=== PATIENT | male | born 1975 | race Caucasian/White ===

== ENCOUNTER 2016-11-02 07:03 | Emergency (ER) | payer OTHER ==
[2016-11-02 07:11] VITALS: BP 135/71
[2016-11-02] MEDS ORDERED: Ondansetron ODT TAB* 4 MG PO ONE (07:31)
[2016-11-02] MEDS ORDERED: Ibuprofen TAB* 600 MG PO ONE (07:31)
--- NOTE | 2016-11-02 07:34 | UC ---
romulo Chappell Timothy, scribed for Odilon Garrett MD on 11/02/16 at 0716 . Abdominal Pain Male HPI - HPI Summary HPI Summary: Judah Sung is a 41 yo male presenting to [facility] with RLQ cramping abd pain for the past few days and vomiting since with sharp 9/10 pain since last night. He states this has interfered with hi sleep. He denies any diarrhea, and notes soft BM. He states the pain does not radiate to his back. He denies any chills, but notes mild subjective fever. He denies any contact with people with illnesses, or any food that he thought was unusual. He states the ride over to [facility] was painful, and that he has been unable to find a comfortable position. He denies any known trauma, rhinorrrhea, sore throat. His MHx includes shoulder reconstruction surgeries, herniated disc, hernia repair, former tobacco use. - History of Current Complaint Stated Complaint: ABD PAIN VOMITING Time Seen by Provider: 11/02/16 07:20 Hx Obtained From: Patient Onset/Duration: Sudden Onset Severity Initially: Moderate Severity Currently: Moderate Pain Intensity: 9 Pain Scale Used: 0-10 Numeric Location: Discrete At: RLQ Character: Cramping, Sharp Associated Signs And Symptoms: Positive: Fever, Nausea, Vomiting. Negative: Back Pain, Diarrhea - Allergies/Home Medications Allergies/Adverse Reactions: Allergies Allergy/AdvReac Type Severity Reaction Status Date / Time Diazepam [From Valium] Allergy Severe N/V/D Verified 11/02/16 07:11 Home Medications: Home Medications Levothyroxine TAB* [Synthroid 88 MCG TAB*] 88 mcg PO DAILY 11/02/16 [History Confirmed 11/02/16] PMH/Surg Hx/FS Hx/Imm Hx - Surgical History Surgical History: Yes Surgery Procedure, Year, and Place: SHOULDER RECONSTRUCTION SURGERIES, HERNIATED DISC, HERNIA REPAIR - Family History Known Family History: Positive: Cardiac Disease, Hypertension, Other - appendicitis Negative: Diabetes - Social History Alcohol Use: Occasionally Substance Use Type: None Smoking Status (MU): Former Smoker Review of Systems Constitutional: Negative Skin: Negative Eyes: Negative ENT: Negative Respiratory: Negative Cardiovascular: Negative Gastrointestinal: Abdominal Pain, Vomiting, Nausea Genitourinary: Negative Motor: Negative Neurovascular: Negative Musculoskeletal: Negative Neurological: Negative Psychological: Negative All Other Systems Reviewed And Are Negative: Yes Physical Exam Triage Information Reviewed: Yes Vital Signs: Initial Vital Signs Temp 97.7 F 11/02/16 07:05 Pulse 81 11/02/16 07:05 Resp 16 11/02/16 07:05 BP 135/71 11/02/16 07:05 Pulse Ox 100 11/02/16 07:05 Vital Signs Reviewed: Yes - Additional Comments The patient is well-nourished in no acute distress and in no acute pain. The skin is warm and dry and skin color reflects adequate perfusion. HEENT: The head is normocephalic and atraumatic. The pupils are equal and reactive. The conjunctivae are clear and without drainage. Nares are patent and without drainage. Mouth reveals moist mucous membranes and the throat is without erythema and exudate. The external ears are intact. The ear canals are patent and without drainage. The tympanic membranes are intact. Neck is supple with full range of motion and non-tender. There are no carotid bruits. There is no neck vein distension. Respiratory: Chest is non-tender. Lungs are clear to auscultation and breath sounds are symmetrical and equal. Cardiovascular: Heart is regular rate and rhythm. There is no murmur or rub auscultated. There is no peripheral edema and pulses are symmetrical and equal. Abdomen: The abdomen is soft with tenderness in the right mid-quadrant. There is pain with flexion of the right knee. There is tenderness to palpation of the RLQ. There are normal bowel sounds heard in all four quadrants and there is no organomegaly palpated. Right CVA tenderness. Musculoskeletal: There is no back pain noted. Extremities are non-tender with full range of motion. There is good capillary refill. There is no peripheral edema or calf tenderness elicited. Neurological: Patient is alert and oriented to person, place and time. The patient has symmetrical motor strength in all four extremities. Cranial nerves are grossly intact. Deep tendon reflexes are symmetrical and equal in all four extremities. Psychiatric: The patient has an appropriate affect and does not exhibit any anxiety or depression. Re-Evaluation - Re-Evaluation First Eval Re-Evaluation Time: 07:29 Change: Unchanged Comment: Pt counseled CT unavailable. Pt recommended to present to [facility], which he is agreeable to. Abd Pain Male Course/Dx - Course Course Of Treatment: Judah Sung is a 41 yo male presenting to [facility] with RLQ cramping abd pain for the past few days and vomiting since with sharp 9/10 pain since last night. Pt medication list reviewed this visit. Pt counseled regarding differentials, and advised that CT is necessary. Due to unavailafbility of CT at [facility] today, Pt counseled to transfer to [facility] by ambulance. EMS offered for transport which Pt declines. He will be transferred to [facility] by private car. - Differential Dx/Clinical Impression Differential Diagnosis/HQI/PQRI: Appendicitis, Gall Bladder Disease, Other - renal calculi Provider Diagnoses: abd pain Discharge - Discharge Plan Condition: Stable Disposition: TRANS HIGHER LVL OF CARE FAC Discharge Disposition Comment: transfer to [facility] by private car The documentation as recorded by the romulo grant Timothy accurately reflects the service I personally performed and the decisions made by me, Odilon Garrett MD.
== END 2016-11-02 07:36 | disposition short-term general hospital (02) ==
LOC: UCEAST 07:03
DX: R10.31 Right lower quadrant pain (principal); Z87.891 Personal history of nicotine dependence
CPT/HCPCS: 99212; A9270-GY; G0463

== ENCOUNTER 2016-11-02 08:02 | Observation (INO) | payer OTHER ==
[2016-11-02] MEDS ORDERED: Ondansetron INJ* 2 MG/ML VIAL IV ONE (08:09)
[2016-11-02] MEDS ORDERED: NS 0.9% 1000 ML* 1,000 ML IV ONE (08:09)
[2016-11-02] MEDS ORDERED: HYDROmorphone* 1 MG/ML 1 ML SYR IV SLOW PU ONE (08:43)
[2016-11-02 09:08] LABS: Hematocrit 45 % (42-52); Hemoglobin 15.2 g/dl (14.0-18.0); Mean Corpuscular HGB Conc 34 g/dl (31-36); Mean Corpuscular Hemoglobin 31 pg (27-31); Mean Corpuscular Volume 91 fL (80-94); Mean Platelet Volume 8 um3 (7.4-10.4); Red Cell Distribution Width 13 % (10.5-15); White Blood Count 16.5 10^3/ul (3.5-10.8)
[2016-11-02 09:21] LABS: Albumin 4.5 g/dL (3.2-5.2); BUN/Creatinine Ratio 15.1 (8-20); C Reactive Protein 65.56 mg/L (< 5.00); Calcium 9.3 mg/dL (8.6-10.3); EGFR African American 127.3 (>60); Globulin 3.2 g/dL (2-4); Potassium 3.5 mmol/L (3.5-5.0); Total Bilirubin 1.2 mg/dL (0.2-1.0); Total Protein 7.7 g/dL (6.4-8.9)
[2016-11-02] MEDS ORDERED: Iohexol 300* (CONTRAST) 10 ML SDV IV ONE (09:38)
--- NOTE | 2016-11-02 09:58 | RAD ---
Indication: Right flank pain, right lower quadrant pain. Real-time sonography of the abdomen was performed. Liver is normal in size. No focal lesions or intrahepatic ductal dilatation is noted. The gallbladder demonstrates no gallstones, pericholecystic fluid or wall thickening. The common duct measures 3 mm. The right kidney measures 10.9 x 5.0 x 4.8 cm. Left kidney measures 11.1 x 4.6 x 4.7 cm. No hydronephrosis is noted. The visualized portions of the pancreatic neck and proximal body demonstrates no mass or pancreatic duct dilatation. The head, distal body and tail are limited in evaluation. Aorta and inferior vena cava are unremarkable. The spleen is normal in size. Graded compression sonography of the right lower quadrant was performed. There are no solid or cystic lesions identified. There is a trace amount of free fluid noted. IMPRESSION: Small amount of free fluid is noted. Appendix not visualized. No evidence of cholelithiasis or biliary duct dilatation.
[2016-11-02 11:55] LABS: Urine Bilirubin Negative (Negative); Urine Glucose Negative (Negative); Urine Nitrite Negative (Negative)
--- NOTE | 2016-11-02 12:19 | RAD ---
Indication: Right lower quadrant pain. Contrast: Administered 115.9 ml of OMNIPAQUE 300 mgi/ml. CT of the abdomen and pelvis was performed after oral and IV contrast coronal and sagittal reconstructed images were obtained. Lung bases demonstrate no pleural fluid, nodules or masses. Heart is of normal size without evidence of pericardial effusion. Liver is normal in size. No focal lesions or intrahepatic ductal dilatation is noted. The gallbladder demonstrates no calcified gallstones, pericholecystic fluid or wall thickening. The common duct is not dilated. The spleen is normal in size. No adrenal lesions are noted. The kidneys demonstrate symmetric nephrograms without focal lesions. Pancreas demonstrates no mass or pancreatic duct dilatation. No dilated loops of bowel are noted. CT of the pelvis demonstrates dilated tubular fluid-filled structure in the right abdomen. This is consistent with acute appendicitis with periappendiceal infiltration of fat. The appendix is retrocecal in nature. CT of the pelvis is otherwise unremarkable. Trace amount of free fluid is noted. Urinary bladder is unremarkable. IMPRESSION: Findings consistent with a dilated retrocecal appendix and adjacent infiltration of fat consistent with acute appendicitis. No abscess is noted.
--- NOTE | 2016-11-02 12:32 | ED ---
Erica Chappell Edward, scribed for Dixie Lopez MD on 11/02/16 at 0815 . Abdominal Pain/Male - HPI Summary HPI Summary: 41 y/o male presents to the ED c/o ABD pain starting three days ago. The ABD pain started as mild with swelling rated at a 3/10. At 00:00 this morning the pain became severe and became rated at a 9/10. The pain started in the stomach and moved to the RLQ. The pain also radiates to the back. The patient also vomited multiple times starting last night. The pain is rated at a 6/10 now. No dysuria. No PMHx IBS. - History of Current Complaint Chief Complaint: EDAbdPain Stated Complaint: ABD PAIN, VOMITING Time Seen by Provider: 11/02/16 08:08 Hx Obtained From: Patient Onset/Duration: Sudden Onset, Lasting Days - Three days ago, Still Present Timing: Constant Severity Initially: Mild Severity Currently: Severe Pain Intensity: 8 Pain Scale Used: 0-10 Numeric Location: Discrete At: RLQ, Other - Stomach Radiates: Yes Radiates to: Back Associated Signs And Symptoms: Positive: Nausea, Vomiting, Other - No dysuria - Allergies/Home Medications Allergies/Adverse Reactions: Allergies Allergy/AdvReac Type Severity Reaction Status Date / Time Diazepam [From Valium] Allergy Severe N/V/D Verified 11/02/16 07:11 PMH/Surg Hx/FS Hx/Imm Hx Previously Healthy: No Endocrine/Hematology History: Reports: Hx Thyroid Disease - Surgical History Surgery Procedure, Year, and Place: SHOULDER RECONSTRUCTION SURGERIES, HERNIATED DISC, HERNIA REPAIR Infectious Disease History: Denies: Traveled Outside the [place] in Last 30 Days - Family History Known Family History: Positive: Cardiac Disease, Hypertension, Other - appendicitis Negative: Diabetes - Social History Occupation: Employed Full-time Lives: With Family - Daughter Alcohol Use: Occasionally Hx Substance Use: No Substance Use Type: Reports: None Hx Tobacco Use: Yes Smoking Status (MU): Former Smoker Review of Systems Constitutional: Negative Eyes: Negative ENT: Negative Cardiovascular: Negative Respiratory: Negative Positive: Abdominal Pain, Vomiting, Nausea, Other - ABD swelling (resolved) Genitourinary: Negative Negative: dysuria Musculoskeletal: Negative Skin: Negative Neurological: Negative Psychological: Normal All Other Systems Reviewed And Are Negative: Yes Physical Exam Triage Information Reviewed: Yes Vital Signs On Initial Exam: Initial Vitals Temp Pulse Resp BP Pulse Ox 98.0 F 89 20 133/85 98 11/02/16 08:04 11/02/16 08:04 11/02/16 08:04 11/02/16 08:04 11/02/16 08:04 Vital Signs Reviewed: Yes Appearance: Positive: Well-Appearing, No Pain Distress Skin: Positive: Warm, Skin Color Reflects Adequate Perfusion, Dry Eyes: Positive: EOMI, JORDY ENT: Positive: Pharynx normal, TMs normal Neck: Positive: Supple, Nontender Respiratory/Lung Sounds: Positive: Clear to Auscultation, Breath Sounds Present. Negative: Rales, Rhonchi, Wheezes Cardiovascular: Positive: RRR, Other - No gallop. Negative: Murmur, Rub Abdomen Description: Positive: Soft, Other: - No rebound. Tenderness @ RLQ and RUQ. Negative: Distended, Guarding Bowel Sounds: Positive: Present Musculoskeletal: Positive: Strength/ROM Intact. Negative: Edema Left, Edema Right Neurological: Positive: Sensory/Motor Intact, Alert, Oriented to Person Place, Time, CN Intact II-III Psychiatric: Positive: Affect/Mood Appropriate Diagnostics - Vital Signs Vital Signs Temp Pulse Resp BP Pulse Ox 11/02/16 08:04 98.0 F 89 20 133/85 98 - Laboratory Lab Results: Lab Results 11/02/16 11/02/16 11/02/16 Range/Units 08:46 08:46 08:46 WBC 16.5 H (3.5-10.8) 10^3/ul RBC 4.90 (4.0-5.4) 10^6/ul Hgb 15.2 (14.0-18.0) g/dl Hct 45 (42-52) % MCV 91 (80-94) fL MCH 31 (27-31) pg MCHC 34 (31-36) g/dl RDW 13 (10.5-15) % Plt Count 245 (150-450) 10^3/ul MPV 8 (7.4-10.4) um3 Neut % (Auto) 87.7 H (38-83) % Lymph % (Auto) 5.1 L (25-47) % Bennett % (Auto) 6.8 (1-9) % Eos % (Auto) 0 (0-6) % Baso % (Auto) 0.4 (0-2) % Absolute Neuts (auto) 14.5 H (1.5-7.7) 10^3/ul Absolute Lymphs (auto) 0.8 L (1.0-4.8) 10^3/ul Absolute Monos (auto) 1.1 H (0-0.8) 10^3/ul Absolute Eos (auto) 0 (0-0.6) 10^3/ul Absolute Basos (auto) 0.1 (0-0.2) 10^3/ul Absolute Nucleated RBC 0.02 10^3/ul Nucleated RBC % 0.1 Sodium 134 (133-145) mmol/L Potassium 3.5 (3.5-5.0) mmol/L Chloride 99 L (101-111) mmol/L Carbon Dioxide 27 (22-32) mmol/L Anion Gap 8 (2-11) mmol/L BUN 13 (6-24) mg/dL Creatinine 0.86 (0.67-1.17) mg/dL Est GFR ( Amer) 127.3 (>60) Est GFR (Non-Af Amer) 99.0 (>60) BUN/Creatinine Ratio 15.1 (8-20) Glucose 127 H (70-100) mg/dL Lactic Acid 1.0 (0.5-2.0) mmol/L Calcium 9.3 (8.6-10.3) mg/dL Magnesium 2.0 (1.9-2.7) mg/dL Total Bilirubin 1.20 H (0.2-1.0) mg/dL AST 16 (13-39) U/L ALT 17 (7-52) U/L Alkaline Phosphatase 68 (34-104) U/L C-Reactive Protein 65.56 H (< 5.00) mg/L Total Protein 7.7 (6.4-8.9) g/dL Albumin 4.5 (3.2-5.2) g/dL Globulin 3.2 (2-4) g/dL Albumin/Globulin Ratio 1.4 (1-3) Lipase 19 (11.0-82.0) U/L Urine Color Urine Appearance Urine pH (5-9) Ur Specific [place] (1.010-1.030) Urine Protein (Negative) Urine Ketones (Negative) Urine Blood (Negative) Urine Nitrate (Negative) Urine Bilirubin (Negative) Urine Urobilinogen (Negative) Ur Leukocyte Esterase (Negative) Urine Glucose (Negative) 11/02/16 Range/Units 11:33 WBC (3.5-10.8) 10^3/ul RBC (4.0-5.4) 10^6/ul Hgb (14.0-18.0) g/dl Hct (42-52) % MCV (80-94) fL MCH (27-31) pg MCHC (31-36) g/dl RDW (10.5-15) % Plt Count (150-450) 10^3/ul MPV (7.4-10.4) um3 Neut % (Auto) (38-83) % Lymph % (Auto) (25-47) % Bennett % (Auto) (1-9) % Eos % (Auto) (0-6) % Baso % (Auto) (0-2) % Absolute Neuts (auto) (1.5-7.7) 10^3/ul Absolute Lymphs (auto) (1.0-4.8) 10^3/ul Absolute Monos (auto) (0-0.8) 10^3/ul Absolute Eos (auto) (0-0.6) 10^3/ul Absolute Basos (auto) (0-0.2) 10^3/ul Absolute Nucleated RBC 10^3/ul Nucleated RBC % Sodium (133-145) mmol/L Potassium (3.5-5.0) mmol/L Chloride (101-111) mmol/L Carbon Dioxide (22-32) mmol/L Anion Gap (2-11) mmol/L BUN (6-24) mg/dL Creatinine (0.67-1.17) mg/dL Est GFR ( Amer) (>60) Est GFR (Non-Af Amer) (>60) BUN/Creatinine Ratio (8-20) Glucose (70-100) mg/dL Lactic Acid (0.5-2.0) mmol/L Calcium (8.6-10.3) mg/dL Magnesium (1.9-2.7) mg/dL Total Bilirubin (0.2-1.0) mg/dL AST (13-39) U/L ALT (7-52) U/L Alkaline Phosphatase (34-104) U/L C-Reactive Protein (< 5.00) mg/L Total Protein (6.4-8.9) g/dL Albumin (3.2-5.2) g/dL Globulin (2-4) g/dL Albumin/Globulin Ratio (1-3) Lipase (11.0-82.0) U/L Urine Color Yellow Urine Appearance Clear Urine pH 6.0 (5-9) Ur Specific [place] 1.008 L (1.010-1.030) Urine Protein Negative (Negative) Urine Ketones 1+ H (Negative) Urine Blood Negative (Negative) Urine Nitrate Negative (Negative) Urine Bilirubin Negative (Negative) Urine Urobilinogen Negative (Negative) Ur Leukocyte Esterase Negative (Negative) Urine Glucose Negative (Negative) Result Diagrams: 11/02/16 08:46 11/02/16 08:46 Lab Statement: Any lab studies that have been ordered have been reviewed, and results considered in the medical decision making process. - CT ABD/PEL CT CT Interpretation: Positive (See Comments) - Findings consistent with a dilated retrocecal appendix and adjacent infiltration of fat consistent with acute appendicitis. No abscess is noted. CT Interpretation Completed By: Radiologist - Ultrasound No standard instances Ultrasound Interpretation: No Acute Changes - ABD US - Small amount of free fluid is noted. Appendix not visualized. No evidence of cholelithiasis or biliary duct dilatation. Ultrasound Interpretation Completed By: Radiologist - EKG 1 Cardiac Rate: NL EKG Rhythm: Sinus Rhythm - @ [address] Segment: Normal EKG Interpretation: 08:48 Abdominal Pain Fem Course/Dx - Course Course Of Treatment: 41 yo male presents with ruq and rlq pain dx of appendicitis on CT admitted to surgery - Diagnoses Provider Diagnoses: Appendicitis - Provider Notifications Discussed Care Of Patient With: Jerome Mendoza Time Discussed With Above Provider: 12:00 Discharge - Discharge Plan Condition: Stable Disposition: ADMITTED TO [facility] documentation as recorded by the Erica grant Edward accurately reflects the service I personally performed and the decisions made by , Dixie Lopez MD.
[2016-11-02] MEDS ORDERED: Ondansetron INJ* 2 MG/ML VIAL IV PRN ×3 (12:41→16:54)
[2016-11-02] MEDS ORDERED: HYDROmorphone* 1 MG/ML 1 ML SYR IV PRN (12:41)
[2016-11-02] MEDS ORDERED: Lidocaine 2% PF * 5 ML VIAL ONE (13:04)
[2016-11-02] MEDS ORDERED: Midazolam* 1 MG/ML 5 ML VIAL (5 MG) ONE (13:04)
[2016-11-02] MEDS ORDERED: Cisatracurium* 2 MG/ML MDV 5 ML ONE (13:04)
[2016-11-02] MEDS ORDERED: KETAMINE HCL* 50 MG/ML 10 ML VIAL ONE (13:04)
[2016-11-02] MEDS ORDERED: Dexamethasone IV* 4 MG/ML 1 ML (4 MG) ONE (13:04)
[2016-11-02] MEDS ORDERED: Propofol* 10 MG/ML 20 ML BTL IV PUSH ONE ×2 (13:04→15:56)
[2016-11-02] MEDS ORDERED: fentaNYL* 50 MCG/ML 2 ML VIAL (100 MCG VIAL) ONE (13:04)
[2016-11-02] MEDS ORDERED: Ketorolac INJ* 30 MG/ML 1 ML VIAL ONE (13:04)
[2016-11-02] MEDS ORDERED: Ondansetron INJ* 2 MG/ML VIAL ONE (13:04)
[2016-11-02] MEDS ORDERED: ZOSYN 3.375 GM x ONE DOSE over 30 miuntes IVPB ×2 (13:30)
[2016-11-02] MEDS ORDERED: Bupivacaine 0.25% W/EPI* 50 ML VIAL ONE (13:35)
[2016-11-02] MEDS ORDERED: Famotidine IV* 10 MG/ML 2 ML (20 mg) ONE (14:09)
[2016-11-02] MEDS ORDERED: EPHEDrine (Pressors)* 50 MG/ML VIAL ONE (14:40)
--- NOTE | 2016-11-02 14:40 | HP ---
CC: Dr. Deven Cheng * ADMISSION HISTORY AND PHYSICAL: DATE OF ADMISSION: 11/02/16 ADMITTING PHYSICIAN: Jerome Mendoza MD * (DICTATED BY NORMA GROSSMAN) CHIEF COMPLAINT: Right lower quadrant abdominal pain. HISTORY OF PRESENT ILLNESS: Mr. Payne is a pleasant 41-year-old gentleman who presented to the emergency room earlier today with complaints of 3-day history of worsening abdominal pain. He reports his pain starting approximately on Wednesday afternoon typically localized to epigastric and umbilical area. He described it initially as a mild aching pain with some cramping and feeling bloated, for which he took some gywb-ooh-pxhbrcy acid reflux medicine with no improvement. Gradually over the course of the past 2 days, his pain has gotten progressively worse until last night. He experienced severe episodes of pain that he described now as being sharp and localized to the right lower quadrant and right flank. Pain was 10/10 with associated nausea and multiple episodes of vomiting as well. He denied any fever; however , he felt some chills and sweating as well. His pain was typically localized to the right lower quadrant, but also radiated to the right upper quadrant and right flank. Given his worsening abdominal pain, he presented to the emergency room for further evaluation. His initial laboratory workup revealed leukocytosis with white count of 16,000. He also had a CT scan as well as an abdominal ultrasound that was consistent with acute appendicitis, for which we were asked to see the patient for further evaluation and to discuss surgery. He denied any hematuria, dysuria, or any history of kidney stones. He took some Dilaudid and 1 L of IV fluid at the ED and he feels slightly better at the time of admission. He, otherwise, is an extremely healthy middle-aged gentleman with no significant past medical history. PAST MEDICAL HISTORY: Significant for hypothyroidism. He denies any history of heart, liver, lung, or kidney disease. PAST SURGICAL HISTORY: Significant for 3 surgeries on the right shoulder in the past due to dislocation and rotator cuff repair. Most recent surgery about 15 years ago. He also had 1 surgery on left shoulder due to multiple dislocation and ligament tear. He also had a right inguinal hernia repair at age 11. CURRENT MEDICATIONS: His medications at home include levothyroxine 88 mcg once daily. ALLERGIES: He is allergic to DIAZEPAM that caused severe nausea, vomiting, and diarrhea. FAMILY HISTORY: He reports family history of hypertension and cardiac disease. Denies any family history of colorectal malignancies. SOCIAL HISTORY: The patient is a former smoker who quit 10 years ago. He drinks alcohol occasionally and caffeine intake is minimal. REVIEW OF SYSTEMS: See HPI, otherwise negative. He denies any headache, dizziness, blurred vision, or syncope. No sore throat, cough, shortness of breath, or wheezing. He denies any chest pain or palpitation. No back pain, flank pain, hematuria, dysuria, or urinary frequency. He admits to chills last night, but denies any fever, night sweats, or recent weight loss. PHYSICAL EXAMINATION GENERAL: He is a pleasant, healthy-appearing, well-nourished, and well- developed middle-aged gentleman, in no acute distress or discomfort at the time of admission. VITAL SIGNS: Revealed temperature of 98.1, pulse of 69, blood pressure of 126/ 66, and O2 sat of 99% on room air. HEENT: Sclerae anicteric. PERRLA. EOMs intact. Oropharynx is pink and moist. There is no exudate. NECK: Supple. Trachea midline. No cervical adenopathy, thyromegaly, or JVD. LUNGS: Clear to auscultation bilaterally. There are no rales, wheezes, or rhonchi noted. HEART: Regular rate and rhythm. Normal S1 and S2 without rubs, murmurs, or gallops. BACK: With normal curvature. No CVA tenderness. ABDOMEN: Soft and nondistended. There is moderate right lower quadrant and right flank tenderness on palpation. There is moderate guarding, but no rigidity noted. There is a point tenderness at McBurney's point with significant rebound tenderness noted as well. There are no hernias, masses, or hepatosplenomegaly. RECTAL EXAM: Deferred at this time. NEUROLOGIC: Grossly intact. LABORATORY DATA: CBC with white count of 16,500, hemoglobin of 15.2, hematocrit of 45, and platelets of 245. Chemistry with sodium of 134, potassium is 3.5, chloride 99, CO2 27, BUN of 13, and creatinine of 0.8. His LFTs and lipase were essentially within normal limits. C-reactive protein is elevated with a value of 65. ACCESSORY DIAGNOSTIC DATA: The patient had first an abdominal ultrasound that revealed small amount of free fluid with no evidence of cholelithiasis and appendix was not visualized, that was followed with a CT scan of the abdomen and pelvis that revealed a dilated retrocecal appendix with adjacent infiltration, which is consistent with acute appendicitis. IMPRESSION: A 41-year-old gentleman with signs and symptoms as well as CT scan findings consistent with acute appendicitis. PLAN: The patient will be directly admitted to surgical services. I discussed with him proceeding with a laparoscopic appendectomy given his ongoing symptoms. The rationale, indications, risks, and benefits of the surgery were discussed with him today. Risks include but not limited to infection, bleeding , or injury to adjacent structures. His last p.o. intake was earlier this morning and he has been n.p.o. for over 8 hours now. We will maintain him n.p.o. and give him more IV fluid as well as prophylactic antibiotics and he will be taken to the operating room later this afternoon in anticipation for laparoscopic appendectomy to be performed by Dr. Mendoza. We will follow him up accordingly. NORMA GROSSMAN [id number]/[facility] #: [id number] LEEANNA
[2016-11-02] MEDS ORDERED: fentaNYL* 50 MCG/ML 2 ML VIAL (100 MCG VIAL) IV PRN (15:44)
[2016-11-02] MEDS ORDERED: oxyCODONE/Acetamin 5/325 MG* TAB PO PRN ×3 (15:44→16:58)
--- NOTE | 2016-11-02 16:19 | SURGPN ---
Brief Operative Note - Surgery Procedures: OPERATIVE REPORT PRE-OP: Acute appendicitis POST-OP: Acute retrocecal appendicitis PROCEDURE: Laparoscopic appendectomy SURGEON: MD Reji ANESTHESIA: General with local, Dr. Griggs ASST: none IVF: 1 liter of crystalloid EBL: min SPECIMEN: appendix DRAIN: none WOUND CLASS: 3 COMPLICATIONS: none TO PACU
[2016-11-02] MEDS ORDERED: Acetaminophen TAB* 325 MG PO PRN (16:54)
[2016-11-02] MEDS ORDERED: Morphine INJ* 2 MG/ML 1 ML SYRINGE IV PRN (16:54)
[2016-11-02] MEDS ORDERED: NS 0.9% 1000 ML* 1,000 ML IV SCH (17:00)
[2016-11-02] MEDS: Heparin VIAL(*) 5000 UNITS/ML VIAL (FIVE THOUSAND) SUBCUT SCH (22:37)
[2016-11-02] MEDS: Ketorolac INJ* 30 MG/ML 1 ML VIAL IV PUSH PRN (22:37)
[2016-11-03] MEDS ORDERED: Levothyroxine TAB* 88 MCG TAB PO SCH (06:00)
[2016-11-03] MEDS: Heparin VIAL(*) 5000 UNITS/ML VIAL (FIVE THOUSAND) SUBCUT SCH (06:02)
[2016-11-03] MEDS: Ketorolac INJ* 30 MG/ML 1 ML VIAL IV PUSH PRN (06:08)
--- NOTE | 2016-11-03 08:01 | PN ---
Progress Note - Progress Note Date of Service: 11/03/16 SOAP: Subjective: Doing well-tolerating po and ambulating in the halls Pain is well controlled Objective: Temp Pulse Resp BP Pulse Ox 98.0 F 72 16 100/55 96 11/03/16 03:21 11/03/16 03:21 11/03/16 03:21 11/03/16 03:21 11/03/16 03:21 Intake & Output 11/01/16 11/02/16 11/03/16 11/04/16 06:59 06:59 06:59 06:59 Intake Total 4498 Output Total 350 Balance 4148 Weight 192 lb Intake: IV Fluids 3102 LR 2000 NS 100ML, Zosyn 3.375G 100 IVPB 111 Oral 1285 Output: Urine 350 Other: Estimated Void Medium # Voids 1 PEX: Comfortable Abd is soft and non-distended. Incisions are clean and dry. Bowel sounds are present. Assessment: POD# 1 s/p appendectomy for acute appendicitis Plan: D/C home today No antibiotics needed. Instructions given Follow up in office next week Rx to [facility] for Percocet.
[2016-11-03 08:24] VITALS: BP 128/69
--- NOTE | 2016-11-03 17:32 | OP ---
DATE OF OPERATION: 11/02/16 - ROOM #334 DATE OF : 79 SURGEON: Jerome Mendoza MD GUIDE EXCURSION: None. ANESTHESIOLOGIST: Salo Griggs MD ANESTHESIA: General with local. PRE-OP DIAGNOSIS: Acute appendicitis. POST-OP DIAGNOSIS: Acute retrocecal appendicitis. OPERATIVE PROCEDURE: Laparoscopic appendectomy. INDICATIONS: Mr. Judah Payne is a 41-year-old gentleman who developed some abdominal pain on Wednesday into Wednesday morning while at home. This persisted over the weekend, became more localized in the right side of his abdomen yesterday. It became quite severe, and he presented to the emergency room early this morning. He was noted to have an elevated white blood cell count of 16,000 and had tenderness in the right mid, and right lower abdomen. He underwent CT scan of the abdomen and pelvis, which showed acute findings consistent with acute appendicitis with thickened dilated appendix, which appeared to be retrocecal. There is no evidence of abscess or perforation, however. After reviewing the patient's presentation, physical exam, workup including CAT scan, it was felt that he does have acute appendicitis and recommended to proceed with an appendectomy today. The procedure was discussed with him and he agrees to proceed. The risks but not limited to bleeding, infection, intra-abdominal abscess formation, injury to peritoneal and retroperitoneal structures, possibility of an open procedure, possibility of an abscess formation, risks of general anesthesia including deep vein thrombosis and pulmonary embolism were also discussed. Possibility of an overnight stay in the hospital was discussed as well as recovery times and activity restrictions postoperatively. He gives his consent and agrees to proceed. ESTIMATED BLOOD LOSS: Minimal. SPECIMENS: Appendix. DRAINS: None. COMPLICATIONS: None. WOUND CLASSIFICATION: III. FINDINGS: The patient had acute appendicitis, which was retrocecal, quite indurated without evidence of perforation or abscess, however. DESCRIPTION OF PROCEDURE: Written informed consent was obtained, the abdomen was marked with indelible ink and preoperative antibiotics were administered. The patient was taken to the operating room, placed in the supine position. Sequential compression devices and warming blanket were applied. General anesthesia was administered. The abdomen was prepped and draped in the usual sterile fashion. Time-out verification was completed. 0.25% Marcaine was infiltrated just below the umbilicus and at the midline, a vertical incision was made at the base of the umbilicus extending inferiorly. The midline fascia was identified and this was divided and the peritoneal cavity was entered under direct vision. A 12-mm port was placed and the abdomen was insufflated to 15 mmHg. Under direct vision, a 5-mm port was placed in the left lower abdominal wall and a second 5-mm port was placed in the suprapubic position. Evaluation of the abdomen revealed no evidence of peritonitis, purulence, or significant fluid. The terminal ileum and right colon appeared to be unremarkable. I was able to identify the base of the appendix at the inferior portion of the cecum. The base of the appendix appeared to be normal and it became much more distended and edematous. It appeared that there was an extended laterally and superiorly along the abdominal wall in a retrocecal position. It appeared to be quite adherent to the ascending colon as well. Thus, started the dissection laterally by dividing some of the peritoneal attachments and delivering the appendix up into view from its proximal portion towards its distal location. Once I was able to identify the foreshortened appendiceal mesentery I was able to bluntly dissect the appendix off the right lateral surface of the right colon. I was then able to divide the appendiceal mesentery sequentially with LigaSure device all the way up to the tip where it was quite adherent to the lateral wall, and this was taken down with combination of sharp and blunt dissection. Once the appendix was delivered up into view, it was apparent that I had included the complete appendix in the dissection. There was no evidence of perforation or abscess in this area. As mentioned below, the base of the appendix and cecum were unremarkable. Next, an Endo ASIM 45-mm urena load of the stapler was used to amputate the appendix at its base. This was placed in an Endo Catch bag and brought out through the umbilical incision. The staple line was intact and hemostasis along the retrocecal area was obtained. I did use some irrigation fluid down in the pelvis, right side and the right abdominopelvic gutter. All ports were then removed under direct vision of the camera. There was no abdominal wall bleeding. The umbilical fascia was closed with interrupted 0 Polysorb suture. The skin was approximated at all 3 incisions with subcuticular 4-0 Polysorb suture. Steri-Strips were applied. The patient tolerated the procedure well and was taken to the recovery room in stable condition. [id number]/[facility] #: [id number] LEEANNA
--- NOTE | 2016-11-05 04:09 | DS ---
DISCHARGE SUMMARY: DATE OF ADMISSION: 11/02/16 DATE OF DISCHARGE: 11/03/16 PRINCIPAL DIAGNOSIS: Acute appendicitis. PROCEDURE PERFORMED: Laparoscopic appendectomy. CONDITION ON DISCHARGE: Good. DISPOSITION: To home. MEDICATIONS: Prescriptions given were: 1. Percocet for discomfort. 2. He is to continue on his Synthroid for treatment of his hypothyroidism. FOLLOWUP: Instructions were made to be seen in the office in seven days for followup and written instructions were given. BRIEF HISTORY: Ms. Judah Payne is a 41-year-old gentleman presented to the emergency room with two to three days of abdominal pain becoming localized in the right lower quadrant. He is noted to have a white blood cell count of 16, [address] scan of the abdomen and pelvis in the emergency room, showed findings consistent with acute retrocecal appendicitis. HOSPITAL COURSE: Surgical consultation was obtained for the emergency room and it was felt that after reviewing his history and physical exam and workup that he did indeed have an acute appendicitis. He was taken to the operating on the day of presentation where he underwent a laparoscopic appendectomy for acute appendicitis. He tolerated the procedure well. Due to the time of day, the completion of the case and the fact he did require postoperative antibiotics. He spent one night in the hospital, but he did well , remaining afebrile. His diet was advanced as he tolerated it. His pain was well- controlled. He was discharged to home on postoperative day #1 with the above instructions. [id number]/[facility] #: [id number] MTDD
== END 2016-11-03 10:25 | disposition home or self-care (01) ==
LOC: ED 08:02 → OR 15:06 → SSU 16:50
PROVIDERS: ADMIT Surgery; ATTEND Surgery
DX: K35.80 Unspecified acute appendicitis (principal); E03.9 Hypothyroidism, unspecified; R10.31 Right lower quadrant pain; R11.2 Nausea with vomiting, unspecified; Z87.891 Personal history of nicotine dependence
CPT/HCPCS: 36415; 74177; 76700; 80053; 81003; 83605; 83690; 83735; 85025; 86140; 88304; 93005; 96374; 96375; 99283; A9270-GY; C1776; G0378; J1100; J1170; J1644; J1885; J2250; J2405; J2543; J2704; J3010; Q9967

== ENCOUNTER 2017-10-18 13:09 | Emergency (ER) | payer BC ==
--- OUTSIDE RECORDS SUMMARY | 2017-10-18 13:18 | XMS REPORT ---
:1975 External Reference #:[id number] Author Organization [facility] Address [address] [facility] [address] [facility] [place] [place] [address] Phone [phone] Care Team Providers Name Role Phone Deven Cheng MD Primary Care Physician Unavailable Payers Type Date Identification Numbers Payment Provider Subscriber Commercial Policy Number: [id number] [employer] Karel Raman PayID: [id number] [address] [place] [address] Problems Description No Information Family History Date Family Member(s) Problem(s) Comments General Cancer General Hypertension Social History Type Date Description Comments Lives 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 Occupation Teacher ETOH Use Currently consumes alcohol Smoking Patient is a former smoker Allergies, Adverse Reactions, Alerts Date Description Reaction Status Severity Comments 11/05/2016 Diazepam active Medications Medication Date Status Form Strength Qnty SIG Indications Ordering Provider Levothyroxine Active Tablets 88mcg 1 by Unknown Sodium 00 mouth every day Vital Signs Date Vital Result Comment 10/07/2017 Height 69 inches 5'9" Weight 189.00 lb BP Systolic 132 mmHg BP Diastolic 82 mmHg Respiratory Rate 16 /min Body Temperature 96.9 F Pain Level 3 BMI (Body Mass Index) 27.9 kg/m2 11/09/2016 Height 69 inches 5'9" Weight 192.00 lb Heart Rate 68 /min BP Systolic 124 mmHg BP Diastolic 70 mmHg Respiratory Rate 16 /min Body Temperature 97.5 F BMI (Body Mass Index) 28.4 kg/m2 Results Test Date Test Result H/L Range Note Laboratory test 11/02/2016 Surgical Pathology SEE RESULT BELOW 1 finding 1 SEE RESULT BELOW Name: KAREL RAMAN : [address]: Jerome Mendoza MD Acct: [id number] Unit: [id number] AGE: 41 Location: [facility] 334-01 Re11/02/16 Dis: 11/03/16 SEX: M Status: DIS Maryse SPEC: [id number] DEMETRIA: 11/02/16- [facility] DR: Jerome Mendoza MD REQ: [id number] RECD: 11/02/16 STATUS: SOUT _ ORDERED: LEVEL 3 FINAL DIAGNOSIS Vermiform appendix, appendectomy: -- Acute suppurative appendicitis with periappendicitis. PRE-OPERATIVE DIAGNOSIS Acute appendicitis GROSS DESCRIPTION The specimen is received in formalin labeled, Appendix, and consists of a 9.2 cm appendix with a small amount of attached mesoappendix at the distal tip. The external diameter ranges from 0.5 cm to 1.1 cm. The serosa is predominantly shaggy mottled urena -benitez with fibromembranous adhesions, mild urena-white fibropurulent exudate and focal cautery. The lumen ranges from 0.1 cm to 0.5 cm and contains hemorrhagic debris. The mucosa is predominantly urena-benitez with mild focal hemorrhage and the wall thickness averages 0.1 cm. Digital Tech sections, one cassette. Signed (signature on file) Andrew Bliss MD 1521 END OF REPORT * ML=Testing performed at Main Lab DEPARTMENT OF PATHOLOGY, [address] [place] [address] Andrew Bliss M.D. Director [facility] # [id number] Procedures Date CPT Code Description Status 11/02/2016 36365 Laparoscopy, Surgical, Appendectomy Completed Encounters Type Date Location Provider CPT E/M Dx Office Visit 11/02/2016 [facility], [address] K35.80 7:00a Ambrocio GREEN Plan of Care 10/07/2017 - Ailyn Clay M.D.M25.531 Pain in right wristNew Xrays:Wrist Right 3+ VWSMRI Wrist Right ArthrogramFollow up:Follow up: after testing is completed
--- OUTSIDE RECORDS SUMMARY | 2017-10-18 13:18 | XMS REPORT ---
:1975 External Reference #:[id number] Author Organization [facility] Address [address] [place] [address] Phone [phone] Care Team Providers Name Role Phone Amaury Linton MD Care Team Information Testing Specialist Unavailable Amaury Linton MD Primary Care Physician Unavailable Payers Type Date Identification Numbers Payment Provider Subscriber Commercial Effective: Policy Number: [id number] P Judah Ireland Pineda 2012 Group Number: [id number] [address] Group Name: [place] [address] PayID: [id number] Commercial Effective: Policy Number: Insurance Change Judah Mchughntosh 2017 [id number] PayID: [id number] Problems Description No Information Family History Date Family Member(s) Problem(s) Comments Father Unknown estranged, knows he's alive Mother Unknown estrangement Mother Hysterectomy First Daughter 16 First Daughter No Current Problems First Sister Thyroid Disease Maternal Grandmother due to [place] () - Also had hysterectomy for cancer Social History Type Date Description Comments Marital Status Not Lives 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 Age 16 Diet Healthy, Well Balanced Is busy, does eat out a lot 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 No concerns about STIs, has been tested since starting the relationship. Allergies, Adverse Reactions, Alerts Date Description Reaction Status Severity Comments 10/01/2017 Valium active Medications Medication Date Status Form Strength Qnty SIG Indications Ordering Provider Complete Active Judah Coe Physical Exam 018 Pineda Sheridan, was seen by GAMMA RAY OPERATOR me on 10/01/17 for a complete adult wellness exam. Levothyroxine Active Tablets 88mcg 1 by mouth Unknown Sodium 000 every day Vital Signs Date Vital Result Comment 10/01/2017 BP Systolic 116 mmHg BP Diastolic 70 mmHg Heart Rate 56 /min Body Temperature 98.0 F Respiratory Rate 16 /min Height 69 inches 5'9" Weight 192.00 lb BMI (Body Mass Index) 28.4 kg/m2 Results Description No Information Procedures Description No Information Plan of Care 10/01/2017 - Bhavana CBennett Sheridan, NPZ00.00 Encntr for general adult medical exam w /o abnormal findingsNew Labs:CBC Electronic (Fma)CCS-Lipid Profile (Fma) FemaleComp MetabolicHemoglobin A1c (Fma)TSH (Fma/[facility])Comments:You are in excellent general health. I recommend regular physical exams with attention to good nutrition and exercise, eye exams every other year, and dental exams twice yearly. ~B_~U_Goals:~u_~b_2 fresh fruits daily3 helpings of fresh green and multicolored vegetablesEat from the whole color spectrum. 40-60 Oz water daily~B_~U_MOVE YOUR BODY.~u_~b_ Bodies were made to be moved. exercise 30 minutes at least 4-5 times qkqectH80.9 Hypothyroidism, unspecifiedComments: Will recheck TSHM25.531 Pain in right wristComments:I recommend you follow up with a hand specialist.AllNew Medication:Complete Physical Exam
[2017-10-18 13:23] VITALS: BP 111/73
--- NOTE | 2017-10-18 13:26 | UC ---
Hand/Wrist HPI - HPI Summary HPI Summary: 42 yo male presents with LEFT wrist pain and left low back pain since yesterday. He tells me that yesterday he was doing a lot of housework. At one point he twisted his left wrist and heard a pop - was able to keep using his wrist/hand with mild pain. Today has some mild pain as well, but no decreased ROM. His low back pain also started with the housework yesterday, but woke up this morning and his lower back was much more stiff. He last took ibuprofen early this morning with mild relief. Denies fever, chills, numbness, tingling, saddle anesthesia, or loss of bowel/bladder control. - History Of Current Complaint Chief Complaint: UCBackPain Stated Complaint: WRIST AND BACK PAIN Time Seen by Provider: 10/18/17 13:25 Hx Obtained From: Patient Onset/Duration: Sudden Onset Severity Initially: Moderate Severity Currently: Severe Pain Intensity: 8 Pain Scale Used: 0-10 Numeric - Allergies/Home Medications Allergies/Adverse Reactions: Allergies Allergy/AdvReac Type Severity Reaction Status Date / Time diazepam [From Valium] Allergy Rash Verified 10/18/17 13:23 PMH/Surg Hx/FS Hx/Imm Hx Previously Healthy: Yes Endocrine History: Hypothyroidism - Surgical History Surgical History: Yes Surgery Procedure, Year, and Place: bilateral SHOULDER RECONSTRUCTION SURGERIES , HERNIATED DISC, HERNIA REPAIR. 11/2016 APPENDIX - Family History Known Family History: Positive: Cardiac Disease, Hypertension, Other - appendicitis Negative: Diabetes - Social History Occupation: Employed Full-time Lives: With Family Alcohol Use: Occasionally Alcohol Amount: every 3 months Substance Use Type: None Smoking Status (MU): Former Smoker - Immunization History Most Recent Influenza Vaccination: 2013 Most Recent Pneumonia Vaccination: never Review of Systems Constitutional: Negative Skin: Negative Respiratory: Negative Cardiovascular: Negative Gastrointestinal: Negative Neurovascular: Negative Musculoskeletal: Other: - LEFT wrist pain Low back pain Neurological: Negative Psychological: Negative All Other Systems Reviewed And Are Negative: Yes Physical Exam - Summary Physical Exam Summary: GENERAL: NAD. WDWN. No pain distress. SKIN: No rashes, sores, lesions, or open wounds. NECK: Supple. Nontender. No lymphadenopathy. CHEST: No accessory muscle use. Breathing comfortably and in no distress. CV: Pulses intact radial and ulnar. MSK: LEFT WRIST: NTTP. FROM. Good manager of business operations strength. No edema or obvious bony deformities. No snuffbox tenderness. LOW BACK: TTP over left lumbar paraspinal muscles. Positive SLR b/l. Strength 5/5 B/L LEs including dorsiflexion and plantar flexion. FROM B/L LEs. No edema. NEURO: Alert. Sensations intact hand and all fingers. L3-S1 intact and symmetric. PSYCH: Age appropriate behavior. Triage Information Reviewed: Yes Vital Signs: Initial Vital Signs Temp 898.4 F 10/18/17 13:21 Pulse 62 10/18/17 13:21 Resp 16 10/18/17 13:21 BP 111/73 10/18/17 13:21 Pulse Ox 99 10/18/17 13:21 Hand/Wrist Course/Dx - Course Course Of Treatment: Pt declined XRs of left wrist and lumbar spine today. Suspect wrist strain and low back spasm. Toradol 30mg IM was given in the clinic. Rx for flexeril and advised to take tylenol and avoid NSAIDs until tomorrow night. - Differential Dx/Diagnosis Provider Diagnoses: Left wrist sprain. Low back spasm Discharge - Sign-Out/Discharge Documenting (check all that apply): Patient Departure - Discharge Plan Condition: Stable Disposition: HOME Prescriptions: Cyclobenzaprine TAB* [Flexeril 10 MG TAB*] 10 mg PO BID PRN #14 tab PRN Reason: Pain Patient Education Materials: Low Back Strain (ED), Lower Back Exercises (ED) Referrals: Amaury Linton MD [Primary Care Provider] - Additional Instructions: If you develop a fever, shortness of breath, chest pain, new or worsening symptoms - please call your PCP or go to the ED. 1) Rest and apply ice/heat to your back to help reduce pain - Billing Disposition and Condition Condition: STABLE Disposition: Home
[2017-10-18] MEDS ORDERED: Ketorolac INJ* 30 MG/ML 1 ML VIAL IM ONE (13:34)
== END 2017-10-18 14:00 | disposition home or self-care (01) ==
LOC: UCEAST 13:09
DX: S63.502A Unspecified sprain of left wrist, initial encounter (principal); X50.1XXA Overexertion from prolonged static or awkward postures, initial encounter; Y93.E9 Activity, other interior property and clothing maintenance; Y92.009 Unspecified place in unspecified non-institutional (private) residence as the place of occurrence of the external cause; M62.830 Muscle spasm of back; M54.5 Low back pain; E03.9 Hypothyroidism, unspecified; Z88.8 Allergy status to other drugs, medicaments and biological substances; Z82.49 Family history of ischemic heart disease and other diseases of the circulatory system; Z87.891 Personal history of nicotine dependence
CPT/HCPCS: 96372; 99212; G0463; J1885

== ENCOUNTER 2017-10-21 13:13 | Emergency (ER) | payer BC ==
--- NOTE | 2017-10-21 16:14 | RAD ---
INDICATION: Leg pain COMPARISON: CT abdomen pelvis November 02, 2016 TECHNIQUE: Noncontrast axial source images was performed from the thoracolumbar junction to the sacrum. Coronal and and sagittal reformatted images were generated. FINDINGS: Vertebrae: There is no fracture or acute focal bony lesion. Alignment: The lumbar vertebrae are normally aligned. Central Canal: There is broad-based bulging of the L4-L5 disc with associated disc space narrowing. There is disc calcification. The appearance is similar to the prior examination. There is no direct nerve root impingement although there is mild right-sided foraminal narrowing. There are no additional significant CT abnormalities of the central canal or foramina. MR imaging is a more sensitive method to evaluate the canal and foramina. Intervertebral disc spaces: The disc spaces are maintained. Soft tissues: The paravertebral soft tissues are normal. Other: None IMPRESSION: DEGENERATIVE DISC DISEASE L4-L5 WITH BROAD-BASED CIRCUMFERENTIAL BULGING THE DISC.
[2017-10-21 17:51] VITALS: BP 118/71
--- NOTE | 2017-11-03 21:29 | ED ---
Back Pain - HPI Summary HPI Summary: PT SEEN ON 10/12/2017: Pt reports LBP while moving items the other day. Was seen at and declined XR - received toradol and flexeril - has flexeril at home. Denies numbness, tingling, weakness into LE's and no change in bowel/bladder habits nor saddle paresthesias. Here for dx of back pain. - History of Current Complaint Chief Complaint: EDBackInjuryPain Stated Complaint: BACK PAIN Time Seen by Provider: 10/21/17 14:51 Hx Obtained From: Patient Pain Intensity: 3 Pain Scale Used: 0-10 Numeric - Allergies/Home Medications Allergies/Adverse Reactions: Allergies Allergy/AdvReac Type Severity Reaction Status Date / Time diazepam [From Valium] Allergy Rash Verified 10/21/17 13:21 PMH/Surg Hx/FS Hx/Imm Hx Previously Healthy: Yes Endocrine/Hematology History: Reports: Hx Thyroid Disease Denies: Hx Anticoagulant Therapy, Hx Blood Disorders, Hx Diabetes Cardiovascular History: Denies: Hx Hypertension, Hx Pacemaker/ICD GI History: Reports: Other GI Disorders - Bilateral Inguinal hernia repairs History: Denies: Hx Renal Disease Musculoskeletal History: Reports: Hx Orthopedic Injury - bilateral rotator cuff repairs Sensory History: Reports: Hx Contacts or Glasses Denies: Hx Hearing Aid Opthamlomology History: Reports: Hx Contacts or Glasses Psychiatric History: Denies: Hx Panic Disorder - Surgical History Surgery Procedure, Year, and Place: bilateral SHOULDER RECONSTRUCTION SURGERIES , HERNIATED DISC, HERNIA REPAIR. 11/2016 APPENDIX Infectious Disease History: No Infectious Disease History: Denies: Traveled Outside the [place] in Last 30 Days - Family History Known Family History: Positive: Cardiac Disease, Hypertension, Other - appendicitis Negative: Diabetes - Social History Alcohol Use: Occasionally Alcohol Amount: every 3 months Hx Substance Use: No Substance Use Type: Reports: None Hx Tobacco Use: Yes Smoking Status (MU): Former Smoker Review of Systems Constitutional: Negative Negative: Fever, Chills Gastrointestinal: Negative Genitourinary: Negative Positive: Arthralgia, Myalgia Skin: Negative Neurological: Negative Psychological: Normal All Other Systems Reviewed And Are Negative: Yes Physical Exam Triage Information Reviewed: Yes Vital Signs On Initial Exam: Initial Vitals Temp Pulse Resp BP Pulse Ox 99.0 F 110 16 135/86 96 10/21/17 13:19 10/21/17 13:19 10/21/17 13:19 10/21/17 13:19 10/21/17 13:19 Vital Signs Reviewed: Yes Appearance: Positive: Well-Appearing, Pain Distress - tolerable - declines pain medication Skin: Positive: Warm, Skin Color Reflects Adequate Perfusion, Dry ENT: Positive: Hearing grossly normal Respiratory/Lung Sounds: Positive: Breath Sounds Present Cardiovascular: Positive: Pulses are Symmetrical in both Upper and Lower Extremities Abdomen Description: Positive: Nontender, Soft Musculoskeletal: Positive: Strength/ROM Intact - LE strength and ROM intact, Limited @ - lumbar movements limited d/t pain adn stiffness Neurological: Positive: Normal, Sensory/Motor Intact, Alert, Oriented to Person Place, Time, CN Intact II-III Psychiatric: Positive: Normal Diagnostics - Vital Signs Vital Signs Temp Pulse Resp BP Pulse Ox 10/21/17 17:50 97.4 F 80 16 118/71 99 10/21/17 13:19 99.0 F 110 16 135/86 96 - Laboratory Lab Statement: Any lab studies that have been ordered have been reviewed, and results considered in the medical decision making process. Back Pain Course/Dx - Course Course Of Treatment: DDD w/ L4-5 broad based disc bulge - no central canal narrowing. Pt is w/o neuro deficits. Added steroid to his regimen. Pt declines medication while here. Will f/u as directed and return to ED if danger s/sx present. - Diagnoses Provider Diagnoses: Lumbar degenerative disc disease, Lumbar disc herniation Discharge - Sign-Out/Discharge Documenting (check all that apply): Patient Departure - Discharge Plan Condition: Stable Disposition: HOME Prescriptions: Ibuprofen TAB* [Motrin TAB* 800 MG] 800 mg PO Q8HR PRN #20 tab PRN Reason: Pain predniSONE TAB* [Deltasone 20 MG TAB*] 60 mg PO DAILY #15 tab Patient Education Materials: Lumbar Disc Herniation (ED) Referrals: Amaury Linton MD [Primary Care Provider] - Additional Instructions: Rest, ice alternating with heat Avoid activities such as bending, twisting, lifting Take ibuprofen 800 mg every 8 hours with food as needed for pain Complete course of prednisone 60 mg daily until finished (this should take 5 days) You have a muscle relaxer, cyclobenzaprine, at home. Please use this as needed note it does cause drowsiness - do not operate machinery while taking Follow-up with your PCP early next week - call today or tomorrow to schedule an appointment *If you develop numbness, weakness, intractable pain or change in bowel/bladder habits, return to the ED - Billing Disposition and Condition Condition: STABLE Disposition: Home
== END 2017-10-21 17:50 | disposition home or self-care (01) ==
LOC: ED 13:13
DX: M51.36 Other intervertebral disc degeneration, lumbar region (principal); M51.26 Other intervertebral disc displacement, lumbar region; Z87.891 Personal history of nicotine dependence; Z88.8 Allergy status to other drugs, medicaments and biological substances
CPT/HCPCS: 72131; 99282